=== PATIENT | male | born 1960 | race Caucasian/White ===

== ENCOUNTER 2019-03-12 08:57 | Day surgery (SDC) | payer OTHER ==
[~2019-03-12] VITALS: Ht 168.9 cm; Wt 84.2 kg
[2019-03-12 09:45] VITALS: BP 147/84; PULSE 66; TEMP 98.5
[2019-03-12] MEDS ORDERED: MULTI VITAMINS1 TAB PO (09:49)
[2019-03-12] MEDS ORDERED: CLARITIN 1010 MG/TAB PO (09:49)
[2019-03-12] MEDS ORDERED: XARELTO10 MG PO (09:50)
[2019-03-12 10:45] VITALS: BP 119/88; PULSE 61; TEMP 97
--- NOTE | 2019-03-12 10:45 | NUR ---
to [facility] via cart from [facility] room, pt walked to chair, in room, call light in reach, takes coffe and roll
[2019-03-12 11:00] VITALS: BP 126/99; PULSE 60
[2019-03-12 11:15] VITALS: BP 120/71; PULSE 61
--- NOTE | 2019-03-12 11:15 | NUR ---
con't same, dr into see pt and
[2019-03-12 11:30] VITALS: BP 124/89; PULSE 65
--- NOTE | 2019-03-12 11:30 | NUR ---
reviewed dischage inst. with pt and , on precautions, activity and followup results with verbal understanding. iv d'cd intact, pt up in room dressed, discharged via w/c to car with
== END 2019-03-12 11:50 | disposition home or self-care (01) ==
LOC: SDCO 08:57
DX: Z12.11 Encounter for screening for malignant neoplasm of colon (principal); D12.8 Benign neoplasm of rectum; J45.909 Unspecified asthma, uncomplicated; G47.33 Obstructive sleep apnea (adult) (pediatric); K21.9 Gastro-esophageal reflux disease without esophagitis; Z86.010 Personal history of colon polyps; Z86.718 Personal history of other venous thrombosis and embolism; Z79.01 Long term (current) use of anticoagulants; F41.9 Anxiety disorder, unspecified; Z90.49 Acquired absence of other specified parts of digestive tract
CPT/HCPCS: J2250; J2704; J3010; J7030

== ENCOUNTER 2020-05-01 20:37 | Emergency (ER) | payer BC ==
[~2020-05-01] VITALS: Ht 170.2 cm; Wt 86.4 kg
[~2020-05-01 20:37] MED LIST: CLARITIN 1010 MG/TAB PO; MULTI VITAMINS1 TAB PO; XARELTO10 MG PO
[2020-05-01 20:42] VITALS: TEMP 98.4
[2020-05-01 21:28] LABS: HEMATOCRIT 39.5 % (42.0-52.0); HEMOGLOBIN 14.3 g/dl (13.5-18.0); MEAN CELL VOLUME 94 fl (80.0-100.0); MEAN CORPUSCULAR HEMOGLOBIN 34 pg (27.0-31.0); MEAN CORPUSCULAR HGB CONC 36 g/dl (33.0-37.0); MEAN PLATELET VOLUME 10.2 fl (7.4-10.4); PLATELET COUNT 175 K/mm3 (130-400); RED BLOOD COUNT 4.22 M/mm3 (4.20-5.60); REDCELL DISTRIBUTION WIDTH-CV 12.7 % (11.5-14.5)
[2020-05-01] MEDS ORDERED: BUSPAR10 MG PO (21:39)
[2020-05-01] MEDS ORDERED: DESYREL 100MG100 MG PO (21:39)
[2020-05-01 21:50] LABS: ALANINE AMINOTRANSFERASE 50 U/L (4-49); ALBUMIN 4.2 gm/dL (3.5-5.0); ALKALINE PHOSPHATASE 67 U/L (50-136); ANION GAP 8 mmol/L (7-16); AST,SGOT 44 U/L (15-37); BILIRUBIN,TOTAL 1.1 mg/dL (0.0-1.0); BLOOD UREA NITROGEN 13 mg/dL (9-20); CALCIUM 8.8 mg/dL (8.4-10.2); CARBON DIOXIDE 25 mmol/L (22-30); CHLORIDE 106 mmol/L (98-107); CREATININE, serum 0.87 (0.66-1.25); GLUCOSE 121 mg/dL (74-106); LIPASE 76 U/L (23-300); POTASSIUM 3.6 mmol/L (3.4-5.0); SODIUM 139 mmol/L (137-145)
[2020-05-01 22:06] LABS: TROPONIN-I < 0.012 ng/mL (0.000-0.035)
[2020-05-01 22:10] LABS: COLLECTION METHOD CLEAN CATCH
[2020-05-01 22:21] LABS: MUCOUS Present /lpf; PH 6 (5-8); SQUAMOUS EPITHELIAL None Seen /hpf; URINE APPEARANCE Clear; URINE BACTERIA Rare /hpf; URINE BILIRUBIN Negative (NEGATIVE); URINE BLOOD Negative (NEGATIVE); URINE COLOR Yellow; URINE GLUCOSE Negative (NEGATIVE); URINE KETONE Negative (NEGATIVE); URINE LEUKOCYTE ESTERASE Negative (NEGATIVE); URINE NITRATE Negative (NEGATIVE); URINE PROTEIN(semi-quant) Negative (NEGATIVE); URINE RBC 0-2 /hpf; URINE UROBILINOGEN Negative (NEGATIVE)
[2020-05-01 22:25] LABS: EOSINOPHIL 4 % (0-4); LYMPHOCYTE 23 % (20.0-51.0); NEUTROPHILS 69 % (42.0-75.2)
[2020-05-01 22:26] LABS: PLATELET ESTIMATE NORMAL (NORMAL)
[2020-05-01] MEDS ORDERED: FLEXERIL 1010 MG/TAB PO (22:47)
[2020-05-01 23:33] VITALS: BP 146/78; PULSE 97
== END 2020-05-01 23:30 | disposition home or self-care (01) ==
LOC: COL.ER 20:37
PROVIDERS: Emergency Medicine
DX: M54.5 Low back pain (principal); Z86.718 Personal history of other venous thrombosis and embolism; Z79.01 Long term (current) use of anticoagulants
CPT/HCPCS: J1885; J2060; J7030; Q9967